=== PATIENT | male | born 1960 | race Caucasian/White ===

== ENCOUNTER 2016-08-19 08:42 | Outpatient (CLI) | payer OTHER ==
[~2016-08-19 08:42] MED LIST: BEE POLLEN500 MG PO; NAPROXEN500 MG PO; NORCO1 TA1 PO; TRIAMCINOLONE A0.11 TOP; VISTARIL25 MG PO; [UNRECOGNIZED DRUG - OTHER] PO
--- NOTE | 2016-08-19 10:47 | DIAGNOSTIC IMAGING REPORT ---
PROCEDURE: US ABDOMEN VASCULAR-AAA INDICATION: ABD BRUIT TECHNIQUE: Robbins scale and color Doppler sonographic images of the abdomen were obtained. COMPARISON: Abdominal ultrasound dated 03/25/2010 FINDINGS: AORTIC VELOCITY: 100 cm/sec PROXIMAL ABDOMINAL AORTA: 2.8 x 3 cm MIDABDOMINAL AORTA: 2.2 x 2.3 cm DISTAL ABDOMINAL AORTA: 2.4 x 2.1 cm RIGHT COMMON ILIAC ARTERY: 1.5 x 1.3 cm LEFT COMMON ILIAC ARTERY: 1.6 x 1.3 cm IMPRESSION: 1. Normal abdominal aorta.
== END 2016-08-19 23:00 ==
LOC: US SRH 08:42
DX: R09.89 Other specified symptoms and signs involving the circulatory and respiratory systems (principal)